=== PATIENT | male | born 1980 | race Caucasian/White ===

== ENCOUNTER 2017-11-26 14:57 | Observation (INO) | payer SELFPAY ==
[2017-11-26] MEDS ORDERED: ONDANSETRON 4 MG/2 ML VIAL ONE ×2 (15:39→16:52)
[2017-11-26] MEDS ORDERED: NA CHLORIDE 0.9% 1,000 ML ONE (15:39)
[2017-11-26 15:41] LABS: Hematocrit 42.2 % (39.6-49.0); MCH 34.1 pg (27.0-35.0); MCV 100.3 fL (80-100); MPV 9.3 fL (7.6-11.3)
[2017-11-26 15:44] LABS: Bicarbonate 27 mEq/L (21-31); Glucose Level 138 mg/dL (65-120); Potassium 3.9 mEq/L (3.6-5.0); Sodium Level 134 mEq/L (135-145)
[2017-11-26 15:53] LABS: BUN Blood Urea Nitrogen 10 mg/dL (6-20); Glomerular Filtration Rate > 90 mL/min (=/>90)
--- NOTE | 2017-11-26 16:12 | RAD REPORT ---
EXAM DESCRIPTION: CT - Head Brain Wo Cont - 11/26/2017 3:51 pm CLINICAL HISTORY: Dizziness, syncope, seizure. COMPARISON: None. TECHNIQUE: All CT scans are performed using dose optimization technique as appropriate and may inclu de automated exposure control or mA/KV adjustment according to patient size. FINDINGS: No intracranial hemorrhage, hydrocephalus or extra-axial fluid collection.Areas of gliosis are seen in the left frontal and left temporoparietal region region likely related to previous traum a or infarct. The paranasal sinuses and mastoids are clear. Evidence of previous left posterior craniotomy seen. IMPRESSION: No acute intracranial abnormality.
--- NOTE | 2017-11-26 16:43 | EDPHYS ---
Physician Documentation [facility] Name: Ke Yancey Age: 37 yrs Sex: Male : 1980 Arrival Date: 11/26/2017 Time: 15:00 Bed 3 Private MD: out of town, doctor ED Physician Magdaleno Holland HPI: 11/26 15:30 This 37 yrs old Male presents to ER via EMS with complaints of Probable Seizure. kb 15:30 The patient presents with a history of multiple seizures, a total of 3. Character of kb seizure(s): Loss of consciousness: the patient experienced loss of consciousness, Motor activity: generalized, shaking all over, Incontinence: none, Apnea: the patient did not experience apnea, Circulation: the patient did not experience evidence of pulse disturbance. Seizure onset: just prior to arrival. Context: the seizure(s) was witnessed, by a friend, occurred at home, Contributing factors: states this happens about once a month. Seizure Hx: Original onset: longstanding, Last seizure: The patient's last seizure was approximately 1 month(s) ago. Associated injury: The patient did not suffer any apparent associated injury. Current symptoms: Currently, the patient is not experiencing any symptoms. The patient has experienced similar episodes in the past, chronically. The patient has not recently seen a physician. 16:27 Pt states he has been trying to get his meds correct so that he doesn't have seizures kb for about 4 years, but still has a bad day about once a month where he has a few seizures. States he feels the same as he usually does after a seizure. . Historical: - Allergies: 15:05 No Known Allergies; sg - Home Meds: 15:05 Tegretol XR Oral for Mixed Epilepsy [Active]; sg - PMHx: 15:05 Seizures; sg - PSHx: 15:05 None; sg - Immunization history:: Adult Immunizations up to date. - Social history:: Smoking status: unknown. ROS: 15:30 Constitutional: Negative for fever, chills, and weight loss, Cardiovascular: Negative kb for chest pain, palpitations, and edema, Respiratory: Negative for shortness of breath, cough, wheezing, and pleuritic chest pain, MS/Extremity: Negative for injury and deformity, Skin: Negative for injury, rash, and discoloration. 15:30 Neuro: Positive for seizure activity. 15:30 Abdomen/GI: Positive for nausea and vomiting. kb Exam: 15:30 Constitutional: This is a well developed, well nourished patient who is awake, alert, kb and in no acute distress. Head/Face: Normocephalic, atraumatic. Chest/axilla: Normal chest wall appearance and motion. Nontender with no deformity. No lesions are appreciated. Cardiovascular: Regular rate and rhythm with a normal S1 and S2. No gallops, murmurs, or rubs. Normal PMI, no JVD. No pulse deficits. Respiratory: Lungs have equal breath sounds bilaterally, clear to auscultation and percussion. No rales, rhonchi or wheezes noted. No increased work of breathing, no retractions or nasal flaring. Abdomen/GI: Soft, non-tender, with normal bowel sounds. No distension or tympany. No guarding or rebound. No evidence of tenderness throughout. Back: No spinal tenderness. No costovertebral tenderness. Full range of motion. Skin: Warm, dry with normal turgor. Normal color with no rashes, no lesions, and no evidence of cellulitis. MS/ Extremity: Pulses equal, no cyanosis. Neurovascular intact. Full, normal range of motion. Neuro: Awake and alert, GCS 15, oriented to person, place, time, and situation. Cranial nerves II-XII grossly intact. Motor strength 5/5 in all extremities. Sensory grossly intact. Cerebellar exam normal. Normal gait. Vital Signs: 15:04 BP 104 / 61; Pulse 60; Resp 18; Temp 97.9; Pulse Ox 99% on R/A; Pain 6/10; sg 15:30 BP 123 / 95; Pulse 82; Resp 18; Pulse Ox 97% on R/A; sv 16:38 BP 142 / 106; Pulse 84; Resp 16; Pulse Ox 98% on R/A; sv 17:31 BP 133 / 99; Pulse 86; Resp 15; Pulse Ox 99% on R/A; Pain 0/10; sv 17:53 BP 127 / 98; Pulse 88; Resp 17; Pulse Ox 99% on R/A; sv 18:20 BP 120 / 73; Pulse 78 MON; Resp 10 S; Pulse Ox 100% on 100% Non-rebreather mask; sg Harris Coma Score: 15:26 Eye Response: spontaneous(4). Verbal Response: oriented(5). Motor Response: obeys sv commands(6). Total: 15. MDM: 15:07 Patient medically screened. kb 15:33 Data reviewed: vital signs, nurses notes. Data interpreted: Pulse oximetry: on room air kb is 99 %. Interpretation: normal. 16:28 Counseling: I had a detailed discussion with the patient and/or guardian regarding: the kb historical points, exam findings, and any diagnostic results supporting the discharge/admit diagnosis, lab results, radiology results, the need for outpatient follow up, a neurologist, to return to the emergency department if symptoms worsen or persist or if there are any questions or concerns that arise at home. 11/26 15:20 Order name: Tegretol Level 11/26 15:20 Order name: CBC w/o diff 11/26 15:20 Order name: Basic Metabolic Panel 11/26 15:20 Order name: Carbamazepine (Tegretol) Level; Complete Time: 15:56 EDFL 11/26 15:20 Order name: CBC without Diff; Complete Time: 16:17 EDFL 11/26 15:20 Order name: Basic Metabolic Panel; Complete Time: 15:56 EDMS 11/26 15:20 Order name: CT Head Brain wo Cont; Complete Time: 16:17 11/26 15:20 Order name: IV Start; Complete Time: 15:26 sg Administered Medications: 15:26 Drug: NS 0.9% 1000 ml Route: IV; Rate: 1000 ml; Site: left antecubital; sv 16:30 Follow up: Response: No adverse reaction; IV Status: Completed infusion; IV Intake: sv 1000ml 15:27 Drug: Zofran 4 mg Route: IVP; Site: left antecubital; sv 16:37 Follow up: Response: No adverse reaction sv 16:37 Drug: Zofran 4 mg Route: IVP; Site: left antecubital; sv 16:58 Follow up: Response: No adverse reaction; No change in condition sv 16:52 Drug: Phenergan 12.5 mg Route: IVP; Site: left antecubital; sv 17:52 Follow up: Response: No adverse reaction sv 17:28 Not Given (Physician Discretion): Meclizine 50 mg PO once kb 18:15 Drug: Ativan 1 mg Route: IVP; Site: left antecubital; 19:05 Follow up: Response: No adverse reaction ak1 Point of Care Testing: Blood Glucose: 15:04 Blood Glucose: 105 mg/dL; sg Ranges: Critical Glucose Levels:Adult <50 mg/dl or >400 mg/dl <40 mg/dl or >180 mg/dl Disposition: 11/26/17 16:42 Hospitalization ordered by Dennys Rodrigues for Observation. Preliminary diagnosis are Epilepsy and recurrent seizures, Nausea with vomiting, unspecified, Dizziness and giddiness, Tegretol toxicity. - Bed requested for Telemetry/MedSurg (observation). - Status is Observation. ak1 - Condition is Stable. - Problem is new. - Symptoms are unchanged. UTI on Admission? No Addendum: 11/28/2017 06:22 Co-signature as Attending Physician, Magdaleno Holland MD. g s Signatures: Dispatcher [employer] EDMS Tamara Weiss, DRAW BENCH OPERATOR HELPER-C DRAW BENCH OPERATOR HELPER-Ckb Regina Lu Stephanie, RN Matti Zelaya RN RN sg Smirch, Shelby, RN RN ss Yoana Walsh RN RN ak1 Starr, Gregory, MD MD Corrections: (The following items were deleted from the chart) 11/26 15:33 15:30 Constitutional: Negative for fever, chills, and weight loss, Cardiovascular: kb Negative for chest pain, palpitations, and edema, Respiratory: Negative for shortness of breath, cough, wheezing, and pleuritic chest pain, Abdomen/GI: Negative for abdominal pain, nausea, vomiting, diarrhea, and constipation, MS/Extremity: Negative for injury and deformity, Skin: Negative for injury, rash, and discoloration, kb
--- NOTE | 2017-11-26 16:43 | ER ---
Nurse's Notes [facility] Name: Ke Yancey Age: 37 yrs Sex: Male : 1980 Arrival Date: 11/26/2017 Time: 15:00 Bed 3 Private MD: out of town, doctor Diagnosis: Epilepsy and recurrent seizures;Nausea with vomiting, unspecified;Dizziness and giddiness;Tegretol toxicity Presentation: 11/26 15:01 Presenting complaint: EMS states: Witnessed seizure lasting about 2-3 minutes by sg friend, pt was confused post seizure, aa\T\ox3 upon EMS arrival, FSBG 102 per EMS on scene, pt has hx of seizures, controlled with medication Tegretol, pt reports taking medication as prescribed, NKA per EMS. Transition of care: patient was not received from another setting of care. Onset of symptoms was November 26, 2017. Care prior to arrival: Glucose check: 102. 15:01 Method Of Arrival: EMS: [facility] 15:01 Acuity: ALAN 3 sg Triage Assessment: 15:00 General: Appears in no apparent distress. comfortable, well groomed, well developed, sg well nourished, Behavior is calm, cooperative, appropriate for age. Pain: Complains of pain in head. Neuro: Level of Consciousness is awake, alert, obeys commands, Oriented to person, place, time, Appliance Repair Technician are equal bilaterally Speech is normal, Facial symmetry appears normal. Cardiovascular: Capillary refill is brisk in bilateral fingers Patient's skin is warm and dry. Chest pain is denied. Respiratory: Airway is patent Respiratory effort is even, unlabored, Respiratory pattern is regular, symmetrical. Derm: Skin is intact, is healthy with good turgor, Skin is dry, Skin is pale, Skin temperature is warm. Historical: - Allergies: 15:05 No Known Allergies; sg - Home Meds: 15:05 Tegretol XR Oral for Mixed Epilepsy [Active]; sg - PMHx: 15:05 Seizures; sg - PSHx: 15:05 None; sg - Immunization history:: Adult Immunizations up to date. - Social history:: Smoking status: unknown. Screenin:26 Abuse screen: Denies threats or abuse. Denies injuries from another. Nutritional sv screening: No deficits noted. Tuberculosis screening: No symptoms or risk factors identified. Fall Risk No fall in past 12 months (0 pts). Secondary diagnosis (15 points) seizures, IV access (20 points). Ambulatory Aid- None/Bed Rest/Nurse Assist (0 pts). Gait- Normal/Bed Rest/Wheelchair (0 pts) Mental Status- Oriented to own ability (0 pts). Total Singh Fall Scale indicates Low Risk Score (25-44 pts). Fall prevention measures have been instituted. Side Rails Up X 2 Placed close to Nursing Station Frequent Obs/Assesments occuring As available Patient and Family Educated on Fall Prevention Program and strategies. Assessment: 15:26 General: Appears uncomfortable, slender, well developed, Behavior is calm, cooperative, sv appropriate for age. Neuro: Level of Consciousness is awake, alert, obeys commands, Oriented to person, place, time, situation, Moves all extremities. Full function Speech is normal, Reports having 3 seizures today. Cardiovascular: Patient's skin is warm and dry. Respiratory: Respiratory effort is even, unlabored, Respiratory pattern is regular, symmetrical. GI: Reports nausea. Derm: Skin is pink, warm \T\ dry. Musculoskeletal: Range of motion: intact in all extremities. 16:35 Reassessment: Patient and/or family updated on plan of care and expected duration. Pain sv level reassessed. Patient is alert, oriented x 3, equal unlabored respirations, skin warm/dry/pink. GI: Pt is actively vomiting kaylyn, Tamara TELECOMMUNICATIONS PROJECT MANAGER at bedside, medication ordered. 16:50 Reassessment: Patient and/or family updated on plan of care and expected duration. Pain sv level reassessed. Patient is alert, oriented x 3, equal unlabored respirations, skin warm/dry/pink. Informed Tamara TELECOMMUNICATIONS PROJECT MANAGER pt was vomiting, medication ordered. GI: Pt is actively vomiting. 17:00 Reassessment: Dr Rodrigues at the bedside. sv 17:31 Reassessment: Patient appears in no apparent distress at this time. Patient and/or sv family updated on plan of care and expected duration. Pain level reassessed. Patient is alert, oriented x 3, equal unlabored respirations, skin warm/dry/pink. Patient states feeling better. Patient states symptoms have improved. 17:33 Reassessment: Grace MONTANEZ to call back for report. sv 17:52 Reassessment: Patient appears in no apparent distress at this time. Patient and/or sv family updated on plan of care and expected duration. Pain level reassessed. Patient is alert, oriented x 3, equal unlabored respirations, skin warm/dry/pink. Patient states symptoms have improved. 18:10 General: Appears seizure activity noted at this time, Bonilla KETTLE FIRER notified, ER sg Charge Nurse Nelly at bedside, water plant maintenance mechanicVickie Hicks at bedside at this time, pt rolled to left side, suction at head of bed, a NRB applied with 15 lpm, pt VSS at this time, orders received for ativan IVP, pt medicated as ordered. Behavior is unresponsive. 18:30 Reassessment:. General: Behavior is drowsy, confused, pt unable to state his name at sg this time, pt awakens to verbal and tactile stimuli, a NC applied at this time, awaiting transport to 2nd floor. 18:30 Respiratory: Airway is patent Respiratory effort is even, unlabored, Respiratory sg pattern is regular, symmetrical. 20:21 Reassessment: pt awake and asking questions. pt resp even unlabored. pt sent up to 220 ak1 with Shelia north RN notified. . Vital Signs: 15:04 BP 104 / 61; Pulse 60; Resp 18; Temp 97.9; Pulse Ox 99% on R/A; Pain 6/10; sg 15:30 BP 123 / 95; Pulse 82; Resp 18; Pulse Ox 97% on R/A; sv 16:38 BP 142 / 106; Pulse 84; Resp 16; Pulse Ox 98% on R/A; sv 17:31 BP 133 / 99; Pulse 86; Resp 15; Pulse Ox 99% on R/A; Pain 0/10; sv 17:53 BP 127 / 98; Pulse 88; Resp 17; Pulse Ox 99% on R/A; sv 18:20 BP 120 / 73; Pulse 78 MON; Resp 10 S; Pulse Ox 100% on 100% Non-rebreather mask; sg [place]on Coma Score: 15:26 Eye Response: spontaneous(4). Verbal Response: oriented(5). Motor Response: obeys sv commands(6). Total: 15. ED Course: 15:00 Patient arrived in ED. sg 15:01 out of town, doctor is Private Physician. sg 15:04 Triage completed. sg 15:05 Maintain EMS IV. Dressing intact. Good blood return noted. Site clean \T\ dry. Gauge \T\ sv site: 20G L AC. 15:06 Arm band placed on. sg 15:07 Tamara Weiss FNP-C [facility]. kb 15:07 Magdaleno Holland MD is Attending Physician. kb 15:18 Shelia Funes, RN is Primary Nurse. sv 15:26 Patient has correct armband on for positive identification. Placed in gown. Bed in low sv position. Call light in reach. Side rails up X2. Seizure precautions initiated. media monitor on. Pulse ox on. NIBP on. Door closed. Warm blanket given. Head of bed elevated. 15:28 Basic Metabolic Panel Sent. sv 15:28 CBC w/o diff Sent. sv 15:28 Tegretol Level Sent. sv 15:[address] via stretcher. eh 15:50 CT completed. Pt tolerated procedure poorly. Patient moved back from CT. eh 15:51 CT Head Brain wo Cont In Process Unspecified. EDMS 16:42 Dennys Rodrigues MD is Hospitalizing Provider. kb 17:31 No provider procedures requiring assistance completed. Patient admitted, IV remains in sv place. intact. 19:06 Primary Nurse role handed off by Shelia Funes, RN sv 19:06 Report given to Yoana RN and Tarsha RN. sv 19:12 Yoana Walsh, RN is Primary Nurse. ak1 Administered Medications: 15:26 Drug: NS 0.9% 1000 ml Route: IV; Rate: 1000 ml; Site: left antecubital; sv 16:30 Follow up: Response: No adverse reaction; IV Status: Completed infusion; IV Intake: sv 1000ml 15:27 Drug: Zofran 4 mg Route: IVP; Site: left antecubital; sv 16:37 Follow up: Response: No adverse reaction sv 16:37 Drug: Zofran 4 mg Route: IVP; Site: left antecubital; sv 16:58 Follow up: Response: No adverse reaction; No change in condition sv 16:52 Drug: Phenergan 12.5 mg Route: IVP; Site: left antecubital; sv 17:52 Follow up: Response: No adverse reaction sv 17:28 Not Given (Physician Discretion): Meclizine 50 mg PO once kb 18:15 Drug: Ativan 1 mg Route: IVP; Site: left antecubital; 19:05 Follow up: Response: No adverse reaction ak1 Point of Care Testing: Blood Glucose: 15:04 Blood Glucose: 105 mg/dL; sg Ranges: Intake: 16:30 IV: 1000ml; Total: 1000ml. sv Outcome: 16:42 Decision to Hospitalize by Provider. kb 17:52 Admitted to Tele accompanied by tech, via stretcher, room 220, with chart, Report sv called to Grace MONTANEZ 17:52 Condition: stable 17:52 Instructed on the need for admit. 20:22 Patient left the ED. ak1 Signatures: Dispatcher [employer] EDMS Tamara Weiss, KETTLE FIRER-C KETTLE FIRER-CkShelia Daniel RN RN sv Matti Guallpa RN RN Chris Ramírez Shelby, RN RN ss Yoana Walsh RN RN ak1 Corrections: (The following items were deleted from the chart) 18:05 17:53 BP 133 / 98; Pulse 88bpm; Resp 17bpm; Pulse Ox 99% RA; sv sv 18:52 18:35 BP 120 / 73; Pulse 78bpm; MonitorResp 10bpm; Spontaneous; Pulse Ox 100% 02 100% sg Non-rebreather mask; sg 18:52 18:35 General: Appears seizure activity noted at this time, Bonilla KETTLE FIRER notified, ER sg Charge Nurse Nelly at bedside, water plant maintenance mechanic Kurt at bedside at this time, pt rolled to left side, suction at head of bed, a NRB applied with 15 lpm, pt VSS at this time, orders received for ativan IVP, pt medicated as ordered. Behavior is unresponsive. sg 18:52 18:45 Reassessment: Patient is alert, oriented x 3, equal unlabored respirations, skin sg warm/dry/pink. sg 18:52 18:45 General: Behavior is drowsy, confused, pt unable to state his name at this time, sg pt awakens to verbal and tactile stimuli, a NC applied at this time, awaiting transport to 2nd floor. sg
[2017-11-26] MEDS ORDERED: ACETAMINOPHEN 500 MG TAB PO PRN (16:46)
[2017-11-26] MEDS ORDERED: MECLIZINE HCL 12.5 MG TAB ONE (16:52)
[2017-11-26] MEDS ORDERED: LORazepam 2 MG/ML VIAL IV PRN (16:53)
[2017-11-26] MEDS ORDERED: PROMETHAZINE 25 MG/ML VIAL ONE (17:10)
[2017-11-26] MEDS ORDERED: LORazepam 2 MG/ML VIAL ONE (18:32)
[2017-11-26] MEDS: ENOXAPARIN 40 MG/0.4 ML SQ SCH (20:34)
[2017-11-26] MEDS: NA CHLORIDE 0.9% 1,000 ML IV SCH (20:34)
[2017-11-26] MEDS: ONDANSETRON 4 MG/2 ML VIAL IV PRN (22:15)
[2017-11-27] MEDS: NA CHLORIDE 0.9% 1,000 ML IV SCH (02:34)
--- NOTE | 2017-11-27 03:54 | HP ---
Date of Admission: 11/26/2017 Chief Complaint: Seizure. Sisal Picker: Michael Valdez M.D. History Of Present Illness: The patient is a 37-year-old male with past medical history of seizure d devin, who was in his usual state of health until day of admission when the patient was at his frie pr's house, had a tonic-clonic seizure that lasted several minutes. The patient then had some postic satya period. The patient did have some eye rolling, but no tongue biting. The patient did not have a fall as his friend was able to control the situation. The patient was confused afterwards and went to sleep for a couple of hours and then was found to have a recurrent seizure, which was again tonic- clonic, lasted approximately 2-4 minutes followed by postictal confusion. The patient was brought in to the hospital by EMS. The patient's symptoms are constant, moderate, and progressively worsening. The patient states that he saw his neurologist in [place] approximately 1 month ago. Last seizure w as approximately 3 weeks ago with no recent changes in medications. In the ER, his vital signs were stable, he was afebrile. His workup showed a Tegretol level of 12.4, which was mildly elevated. CT scan of the head was done, which was negative for any acute changes. The patient was then given Zofr an x2, IV fluids, and referred for admission. When the patient was seen in the ER, he was awake, samantha rt, and oriented x3, in some mild distress. Past Medical History: Seizure disorder. Surgical History: The patient had a fall and required stitches and taras on his posterior skull. Allergies: NO KNOWN DRUG ALLERGIES. Medications: Tegretol and Neurontin 600 mg twice a day. Social History: The patient smokes 1 pack per day for the past several years, drinks beer almost marilee ly. No illicit drug use. The patient has good social support. Family History: The patient denies any family history of seizure disorder. No premature coronary ar leslye disease. Review of Systems: An 11-point system reviewed, negative except as per HPI. Physical Examination: Vital Signs: Temperature 97.9, heart rate 60, blood pressure 104/61, respirations 18, and O2 99% on room air. General: Awake, alert, and oriented x3, in some mild distress. Somewhat ill-appearing male. HEENT: Normocephalic, atraumatic. PERRLA. EOMI. Moist mucous membranes. Oropharynx is clear. Co njunctivae anicteric. Neck: Supple. No JVD. Trachea midline. CV: S1, S2. No murmurs. Regular rate and rhythm. Peripheral pulses are present bilaterally. Respiratory: Clear to auscultation bilaterally. No wheezing. No stridor. No use of accessory musc les. Gastrointestinal: Abdomen is soft, nontender, and nondistended. Positive bowel sounds. No guarding or rigidity. Extremities: No clubbing, cyanosis, or edema. No calf tenderness. Skin: No rashes. Normal skin turgor. Neuro: Cranial nerves 2 through 12 intact grossly. No focal neurological deficit. Strength is 5/5 bilateral in upper and lower extremities. Sensation is intact to light touch. Speech is normal. Laboratory Data: Tegretol level 12.4, sodium 134, potassium 3.9, chloride 95, CO2 27, BUN 10, creati nine 0.66, glucose 138, and calcium 8.4. WBC 7.7, H and H 14.3 and 42.2, and platelets 126. CT scan of the head shows no acute intracranial abnormality. Assessment: A 37-year-old male with: 1.Acute seizure. We will continue to monitor patient in close setting with seizure precautions, fal l precautions, and Ativan p.r.n. The patient has an elevated Tegretol level. We will recheck Tegret ol level in the a.m. Dr. Valdez of Neurology has been consulted. We will obtain EEG. 2.Gastrointestinal and deep venous thrombosis prophylaxis with PPI, Lovenox. Plan: Admit the patient to [facility] as observation. /ROWAN Voice ID: [id number]
[2017-11-27] MEDS: ONDANSETRON 4 MG/2 ML VIAL IV PRN ×2 (04:48→09:02)
[2017-11-27 05:18] LABS: Absolute Lymphocytes (CBC) 0.6 K/uL (0.7-4.9); Absolute Monocytes 0.5 K/uL (0.1-1.3); Absolute Neutrophil 5.1 K/uL (1.8-8.0); Basophils % 0.4 % (0-1.3); Eosinophils % 0.1 % (0-4.4); Hematocrit 40.4 % (39.6-49.0); Lymphocytes % 10.2 % (15.3-44.8); MCV 100.5 fL (80-100); MPV 9.2 fL (7.6-11.3); Monocytes % 8.6 % (3.3-12.3); RBC Red Blood Cell Count 4.02 M/uL (4.33-5.43)
[2017-11-27 05:39] LABS: ALT/SGPT 81 IU/L (10-60); AST/SGOT 184 IU/L (10-42); Albumin 3.1 g/dL (3.2-5.5); Alkaline Phosphatase 269 IU/L (42-121); BUN Blood Urea Nitrogen 6 mg/dL (6-20); Bicarbonate 26 mEq/L (21-31); Bilirubin Total 1.7 mg/dL (0.3-1.2); Glomerular Filtration Rate > 90 mL/min (=/>90); Glucose Level 80 mg/dL (65-120); Magnesium 1.9 mg/dL (1.8-2.5); Potassium 3.4 mEq/L (3.6-5.0); Sodium Level 132 mEq/L (135-145)
[2017-11-27] MEDS ORDERED: INFLUENZA VACCINE (for 3y+) 0.5 ML DOSE IMVAC ONE (06:00)
[2017-11-27] MEDS ORDERED: POTASSIUM CL SA 10 MEQ TAB PO ONE (09:00)
[2017-11-27] MEDS ORDERED: HOME MED 1 EA UNK (Carbamazepine [Tegretol Xr] 200 MG) PO SCH (09:00)
[2017-11-27] MEDS: ENOXAPARIN 40 MG/0.4 ML SQ SCH (09:02)
[2017-11-27] MEDS ORDERED: MECLIZINE HCL 12.5 MG TAB PO PRN (10:14)
[2017-11-27] MEDS ORDERED: CARBAMAZEPINE 200 MG TAB PO SCH (11:00)
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
[2017-11-27] MEDS ORDERED: ENSURE ENLIVE 237 ML CAN PO SCH (21:00)
--- NOTE | 2017-11-28 01:37 | DS ---
Date of Discharge: 11/27/2017 Transition Assistant: Michael Valdez MD, with Neurology. Admitting Diagnosis: Seizure disorder. Discharge Diagnoses: 1.Acute seizure. 2.Epilepsy. Hospital Course: The patient is a 37-year-old male who was admitted to the hospital for recurrent se izures. The patient was found to have elevated Tegretol level of 12.4. He was taking 400 mg b.i.d. of extended-release Tegretol. His Tegretol was held. He was placed on Ativan p.r.n. for seizures. He did not have any further seizures while in the hospital. CT scan of the head was done which was n egative. EEG was ordered. Dr. Valdez with Neurology was also consulted. The patient did report s ome dizziness with movement, especially when sitting up. The patient was given trial of meclizine an d Kanu maneuver. The patient's condition improved. The patient was then cleared for discharge from Neurology standpoint. However, prior to being properly discharged, the patient took his IV out and left the hospital, however came back shortly afterwards, realizing that he had not signed any papers. He did not mean to leave against medical advice and stated that it was a sincere mistake. The franny ent was then educated on compliance of Kanu maneuver and seizure precautions. He was then discharge d home in stable condition. Activity: Seizure precautions. No swimming, heights, driving. Diet: Regular. Followup: With neurologist in [place] in 1 week. Return to ER for worsening condition. Medications: As per medication reconciliation list. Tegretol dose will be decreased to 100 mg twice a day. Meclizine as needed. Physical Examination: General: Awake, alert, oriented, no acute distress. CV: S1, S2. No murmurs. Respiratory: Moving air well bilaterally. Abdomen: Abdomen is soft, nontender, nondistended. Positive bowel sounds. Extremities: No clubbing, cyanosis, or edema. Neurologic: Nonfocal. SA/MODL Voice ID: [id number] Report ID: [id number]
== END 2017-11-27 15:14 | disposition home or self-care (01) ==
LOC: ER 14:57 → ERHOLD 16:43 → 2ND 18:04
PROVIDERS: ADMIT Family Medicine; ATTEND Family Medicine
DX: G40.909 Epilepsy, unspecified, not intractable, without status epilepticus (principal); R42 Dizziness and giddiness
CPT/HCPCS: 36415; 70450; 80048; 80053; 80156; 82962; 83735; 85025; 85027; 94760; 96361; 96374; 96375; 99285; G0378; J1650; J2405; J2550; J7030